=== PATIENT | male | born 1985 | race Caucasian/White ===

== ENCOUNTER 2020-03-21 10:21 | Emergency (ER) | payer OTHER ==
[~2020-03-21] VITALS: Ht 172.7 cm; Wt 65.8 kg
[~2020-03-21 10:21] MED LIST: BUPRENORPHIN-N1 EACH SL; HYDACE5 PO; Mobic15 MG PO; OXYACE5T PO; TAMS.4ER PO; TRAZ50 PO; Ultram50 MG PO; Veetids 500500 MG PO
== END 2020-03-21 13:10 | disposition home or self-care (01) ==
LOC: ER 10:21
DX: R68.84 Jaw pain (principal); R20.0 Anesthesia of skin; R20.2 Paresthesia of skin; F17.210 Nicotine dependence, cigarettes, uncomplicated; Z87.442 Personal history of urinary calculi; Z98.890 Other specified postprocedural states; Z79.899 Other long term (current) drug therapy
CPT/HCPCS: 70486; 99283-25

== ENCOUNTER 2020-06-04 20:47 | Emergency (ER) | payer OTHER ==
[~2020-06-04] VITALS: Ht 172.7 cm; Wt 65.8 kg
[2020-06-04] MEDS ORDERED: Amoxicillin500 MG PO (22:05)
== END 2020-06-04 22:16 | disposition home or self-care (01) ==
LOC: ER 20:47
DX: K02.9 Dental caries, unspecified (principal); F17.210 Nicotine dependence, cigarettes, uncomplicated; Z87.442 Personal history of urinary calculi; Z79.899 Other long term (current) drug therapy
CPT/HCPCS: 99282; A9270